=== PATIENT | female | born 1990 | race Caucasian/White ===

== ENCOUNTER 2016-09-26 15:45 | Inpatient (IN) | payer OTHER ==
[~2016-09-26] VITALS: Ht 170.2 cm; Wt 54.5 kg
--- NOTE | 2016-09-26 15:55 | NUR ---
26 Y/O FEMALE C/O SI. STATES SHE HAS BIPOLAR AND DEPRESSION AND FEELS THAT SHE HAS HAD "MORE UPS AND DOWNS" SINCE STARTING ABILIFY A FEW WEEKS AGO. FEELS SUICIDAL WITH PLAN (AND PREVIOUS ATTEMPTS) OF "CUTTING MYSELF OR DRIVING REALLY FAST IN THE SLEET". DENIES HI. CALM AND COOPERATIVE. FAMILY PRESENT. STATES SHE GOES TO IOP - WENT TODAY AND WAS ADVISED TO COME TO ED.
--- NOTE | 2016-09-26 15:55 | NUR ---
AMBULATORY TO STRETCHER IN POD 3 FROM TRIAGE WITH [facility].
--- NOTE | 2016-09-26 16:13 | ED PSYCHIATRIC COMPLAINT ---
History of Present Illness General Chief Complaint: Psychiatric Related Complaint Stated Complaint: PT IS THINKING ABOUT DOING HARM TO HER SELF Source: patient, family, old records Exam Limitations: no limitations Vital Signs & Intake/Output Vital Signs & Intake/Output Vital Signs Date Time Temp Pulse Resp B/P Pulse O2 O2 Flow FiO2 Ox Delivery Rate 10/01 0816 97.1 82 111/72 09/30 195 97.9 93 135/79 09/30 1613 91 127/80 09/30 1215 81 119/77 Triage Note: 26 Y/O FEMALE C/O SI. STATES SHE HAS BIPOLAR AND DEPRESSION AND FEELS THAT SHE HAS HAD "MORE UPS AND DOWNS" SINCE STARTING ABILIFY A FEW WEEKS AGO. FEELS SUICIDAL WITH PLAN (AND PREVIOUS ATTEMPTS) OF "CUTTING MYSELF OR DRIVING REALLY FAST IN THE SLEET". DENIES HI. CALM AND COOPERATIVE. FAMILY PRESENT. STATES SHE GOES TO IOP - WENT TODAY AND WAS ADVISED TO COME TO ED. Triage Nurses Notes Reviewed? yes Onset: Abrupt Duration: week(s):, constant, getting worse Timing: recent history Severity: moderate, severe Severity Numbers: 10 Associated Symptoms: insomnia, suicidal ideation LMP (ages 10-50): now : No Patient currently breastfeeds: No HPI: 26-year-old female with history of cold disorder presents to emergency room complaining of suicidal ideation for the past few days with the plan of driving fast and crashing her car. The patient reports to a labile mood over the past few months has been worse over the past few weeks difficulty sleeping poor appetite . She seen by psychiatrist in [place] and has been compliant with taking Abilify and viibrid since june after she believes that these medications are making it worse. Her symptoms began from the stress of a recent eX and custody hernández. She is currently living with her mother. She denies alcohol or drug use she was hospitalized 10 years ago for similar episodes and states she benefited well from inpatient setting and intensive group counseling. The patient gave permission for both her mother myrna aguayo [phone] and father nel reyna [phone] to be reached for collaboration of conner (JAG BRUNO,CELIA) Allergies Coded Allergies: Penicillins (Severe, HIVES 09/26/16) benzoyl peroxide (FACIAL SWELLING 09/26/16) Reconcile Medications Aripiprazole (Abilify) 2 MG TABLET 1 TAB PO QPM MENTAL HEALTH (Reported) Eletriptan HBr (Relpax) 40 MG TABLET 40 PO PRN MIGRANES (Reported) Ibuprofen 200 MG CAPSULE 3 CAP PO PRN HEADACHES (Reported) Vilazodone (Viibryd) 40 MG TABLET 1 TAB PO QPM MENTAL HEALTH (Reported) (GALO NORMAN,TOM) Past History Travel History Traveled to [place] past 21 day No Medical History Any Pertinent Medical History? see below for history Neurological: NONE EENT: NONE Cardiovascular: NONE Respiratory: NONE Gastrointestinal: NONE Hepatic: NONE Renal: NONE Musculoskeletal: NONE Psychiatric: bipolar disease, depression Endocrine: NONE Blood Disorders: NONE Cancer(s): NONE GATEKEEPER/Reproductive: NONE Surgical History Surgical History: none Psychosocial History What is your primary language Japanese Tobacco Use: Current Not Daily Daily Tobacco Use Amount/Type: =< 4 Cigarettes daily ETOH Use: denies use Family History Hx Contributory? No (CELIA RAYA) Review of Systems Review of Systems Constitutional: Reports: no symptoms, see HPI. Comments Review of systems: See HPI, All other systems negative. Constitutional, no chills no fever, no malaise HEENT: No visual changes no sore throat no congestion Cardiovascular: No chest pain , no palpitation Skin, no jaundice no rashes, no change in skin Respiratory: No dyspnea no cough no sputum GI: No nausea no vomiting, no diarrhea : No dysuria Muscle skeletal: No joint pain, no back pain, no neck pain, Neurologic: No numbness no headache Psych: see hpi Heme/endocrine: No bruising no bleeding Immunology: No lymphadenopathy (CELIA RAYA) Physical Exam Physical Exam General Appearance: well developed/nourished, no apparent distress, alert, awake Neurological/Psychiatric: no motor/sensory deficits, awake, normal mood/affect, calm Comments: Well-developed well-nourished person in no acute distress HEENT: Normal EENT exam; PERRL, EOMI. HEAD is atraumatic. moist mucous membranes. Neck: Supple, normal range of motion Back: Nontender, no CVA tenderness. Full range of motion Cardiovascular: Regular rate and rhythms no murmurs rubs Respiratory: . No respiratory distress. Patient speaking in full complete sentences. Breath sounds clear to auscultation bilaterally: NO W/R/R Abdomen: Soft, nontender nondistended, no appreciable organomegaly. Normal bowel sounds. No rebound/guarding, Extremity: No edema, full range of motion of extremities Neuro: Alert oriented x3, motor sensory normal. There were no obvious focal neurologic abnormalities. Skin: No appreciable rash on exposed skin, skin is warm and dry. Psych: Mood and affect is normal, memory and judgment is normal. SAD PERSONS SAD PERSONS Response Value Depression/Hopelessness? yes 2 Previous Attempts/Psych Care yes 1 Single//? yes 1 Organized/Serious Attempt yes 2 Social Support? has support 0 Stated Future Intent? yes 2 Total 8 SAD PERSONS Done? yes (CELIA RAYA) Progress Differential Diagnosis: depression bipolar Plan of Care: Orders Procedure Date/time Status LITHIUM 10/03 0600 Active INIT HSP (30 MIN) 09/27 UNK Complete Current Medications Sig/Harsh Start time Last Medication Dose Stop Time Status Admin Acetaminophen 1,000 MG Q8P PRN 09/30 1600 AC (Tylenol) Labs ordered old records reviewed crisis consulted. case d/w dr lockhart (CELIA RAYA) Departure Departure Condition: Stable Departure Forms: Customer Survey General Discharge Information (CELIA RAYA) Departure Time of Disposition: 1930 Disposition: STILL A PATIENT Clinical Impression Primary Impression: Suicidal ideation Psych Admission Note Psychiatric Admission: I have seen and evaluated YOAN REYNA. I have also reviewed all the pertinent lab results and diagnostic results. YOAN REYNA will be admitted to our inpatient Psychiatric unit for treatment and care. PA/CONTINUITY EDITOR Co-Sign Statement Statement: ED Attending supervision documentation- [X] I saw and evaluated the patient. I have also reviewed all the pertinent lab results and diagnostic results. I agree with the findings and the plan of care as documented in the PA's/CONTINUITY EDITOR's documentation. [X] I have reviewed the ED Record and agree with the PA's/CONTINUITY EDITOR's documentation. [] Additions or exceptions (if any) to the PAs/CONTINUITY EDITOR's note and plan are summarized below: [] (GALO NORMAN,TOM) PA/CONTINUITY EDITOR Co-Sign Statement Statement: ED Attending supervision documentation- [X] I saw and evaluated the patient. I have also reviewed all the pertinent lab results and diagnostic results. I agree with the findings and the plan of care as documented in the PA's/CONTINUITY EDITOR's documentation. [X] I have reviewed the ED Record and agree with the PA's/CONTINUITY EDITOR's documentation. [] Additions or exceptions (if any) to the PAs/CONTINUITY EDITOR's note and plan are summarized below: [] (GALO NORMAN,TOM)
--- NOTE | 2016-09-26 16:13 | NUR ---
SECURITY TO [place] FOR WANDING. PT CALM AND COOPERATIVE CHANGING INTO BLUE SCRUBS AT THIS TIME. PT PARENTS AT BEDSIDE FOR SUPPORT.
--- NOTE | 2016-09-26 16:45 | NUR ---
DAMION SCHWARTZ TO BEDSIDE FOR EVAL.
[2016-09-26] MEDS ORDERED: ABILIFY2 MG PO (16:54)
[2016-09-26] MEDS ORDERED: VIIBRYD40 M1 PO (16:54)
--- NOTE | 2016-09-26 16:54 | NUR ---
PT BLOOD OBTAINED (SST,LAV, URINE TRIO.) PT PROVIDED WITH DINNER TRAY. OFFERS NO COMPLAINTS AT THIS TIME.
[2016-09-26] MEDS ORDERED: IBUPROFEN200 M3 PO (16:55)
[2016-09-26 16:57] LABS: ABSOLUTE BASOPHIL COUNT 0.1 /CUMM (0.0-0.2); ABSOLUTE EOSINOPHIL COUNT 0.1 /CUMM (0.0-0.7); ABSOLUTE GRANULOCYTE CT 5.9 /CUMM (1.4-6.5); ABSOLUTE MONOCYTE COUNT 0.6 /CUMM (0.10-0.60); BASOPHIL % 0.7 % (0.0-2.0); GRANULOCYTE % 68.3 % (42.2-75.2); HEMATOCRIT 42.4 % (37-47); MEAN CORPUSCULAR HGB 30.9 PG (27.0-31.0); MEAN CORPUSCULAR HGB CONC 34.6 G/DL (33.0-37.0); MEAN CORPUSCULAR VOLUME 89.3 FL (81.0-99.0); MEAN PLATELET VOLUME 6.9 FL (7.4-10.4); PLATELET COUNT 270 /CUMM (130-400); RBC DISTRIBUTION WIDTH 12.8 % (11.5-14.5); RED BLOOD CELL CT 4.75 /CUMM (4.20-5.40); WHITE BLOOD CELL COUNT 8.6 /CUMM (4.8-10.8)
--- NOTE | 2016-09-26 17:55 | NUR ---
ASSUMED CARE AT THIS TIME, PT CALM AND COPERATIVE
--- NOTE | 2016-09-26 18:19 | NUR ---
PT SPEAKING WITH CRISIS.
--- NOTE | 2016-09-26 18:44 | NUR ---
PT SITTING UP IN RECLINER CHAIR READING A BOOK AT THIS TIME, OFFERS NO COMPLAINTS
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
--- NOTE | 2016-09-26 19:15 | NUR ---
ASSUMED CARE OF PATIENT. PT CALM AND COOPERATIVE. PT AWARE OF PLAN TO BE ADMITTED DOWNSTAIRS. SITTER AT DOOR FOR SAFETY
--- NOTE | 2016-09-26 20:10 | NUR ---
PT CALM AND COOPERATIVE IN ROOM 15, READING A BOOK. PT STATES SHE "FEELS SAFE HERE". PT AWAITING TRANSFER TO [facility].
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
--- NOTE | 2016-09-26 20:13 | NUR ---
PT INQUIRED IF SHE HAD A UTI, DUE TO DARK COLORED URINE WITH WHITE SPECKS IN IT. UA NOT COMPLETED IN ED. WILL ADVISE CPS.
--- NOTE | 2016-09-26 20:18 | NUR ---
PT REPORTED TO SW THAT SHE TAKES RELPAX FOR MIGRAINES. THIS MED WAS NOT LISTED ON HOME MED LIST.
--- NOTE | 2016-09-26 20:22 | NUR ---
Crisis consultation completed. Patient evaluation reviewed with on-call psychiatrist Dr. Quigley. Patient will be admitted to [facility].
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
[2016-09-26 21:38] VITALS: BP 114/70
--- NOTE | 2016-09-26 22:44 | History & Physical ---
General Information and HPI MD Statement: I have seen and personally examined YOAN REYNA and documented this H&P. The patient is a 26 year old F who presented with a patient stated chief complaint of [medical evaluation]. Source of Information: patient Exam Limitations: no limitations History of Present Illness: Patient admitted for suicidal ideation and depression. Patient complains of urinary symptoms with incomplete voiding, frequency. "I may have UTI". But denies any dysuria, burning, lower abdominal pain. Patient has vaginal itching, scant thick vaginal discharge. Patient started her menses today. Patient gets recurrent urinary infections, last being treated with antibiotics in June. She denies any fever, back pain, abdominal pain, nausea vomiting. But she endorses some chills and night sweats. Occasionally she gets headaches, and watery stools one per day when she is anxious and stressed. Otherwise complete 14 point ROS negative. Allergies/Medications Allergies: Coded Allergies: Penicillins (Severe, HIVES 09/26/16) benzoyl peroxide (FACIAL SWELLING 09/26/16) Home Med list Aripiprazole (Abilify) 2 MG TABLET 1 TAB PO QPM MENTAL HEALTH (Reported) Eletriptan HBr (Relpax) 40 MG TABLET 40 PO PRN MIGRANES (Reported) Ibuprofen 200 MG CAPSULE 3 CAP PO PRN HEADACHES (Reported) Vilazodone (Viibryd) 40 MG TABLET 1 TAB PO QPM MENTAL HEALTH (Reported) Compliance With Home Meds: FAIR Past History Travel History Traveled to [place] past 21 day No Medical History Any Pertinent Medical History? 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 Home Who Do You Live With? parent Services at Home: None Primary Language: Maldivian Smoking Status: Never Smoked ETOH Use: occasional use Illicit Drug Use: marijuana Living Will? unknown Power of Formstone Fitter/HCP? unknown Functional Ability ADLs Independent: dressing, eating, toileting, bathing. Ambulation: independent IADLs Independent: shopping, housework, finances, food prep, telephone, transportation , medication admin. 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 Review of Systems Review of Systems Constitutional: Reports: chills. Denies: see HPI, diaphoresis, fever, malaise, weakness. EENTM: Reports: no symptoms. Cardiovascular: Reports: no symptoms. Respiratory: Reports: no symptoms. GI: Reports: no symptoms. Genitourinary: Reports: frequency, hesitation, urgency. Musculoskeletal: Reports: no symptoms. Skin: Reports: no symptoms. Neurological/Psychological: Reports: anxiety, depressed. Hematologic/Endocrine: Reports: no symptoms. Immunologic/Allergic: Reports: no symptoms. All Other Systems: Reviewed and Negative Date of LMP: 09/26/16 Post Menopausal: No Exam & Diagnostic Data Last 24 Hrs of Vital Signs/I&O Vital Signs Date Time Temp Pulse Resp B/P Pulse O2 O2 Flow FiO2 Ox Delivery Rate 09/26 2137 97.9 83 114/70 09/26 2011 98.2 84 16 104/65 98 Room Air 09/26 1844 98.4 82 16 105/57 98 Room Air 09/26 1550 98.7 96 18 119/80 96 Room Air Intake & Output 09/26 0000 09/26 0800 09/26 1600 Intake Total Output Total Balance Patient 54.431 kg Weight Physical Exam General Appearance Alert, Oriented X3, Cooperative, No Acute Distress Skin No Rashes, No Breakdown, No Significant Lesion HEENT Atraumatic, PERRLA, EOMI, Mucous Membr. moist/pink Neck Supple, No JVD, No thryomegaly, +2 Carotid Pulse wo Bruit, No LAD Lymphatic Cervical nl Cardiovascular Regular Rate, Normal S1, Normal S2, No Murmurs Lungs Clear to Auscultation, Normal Air Movement Abdomen Normal Bowel Sounds, Soft, No Tenderness, No Hepatospenomegaly, No Masses Neurological Exam Findings: Normal Gait, Normal Speech, Strength at 5/5 X4 Ext, Normal Tone, Sensation Intact, Cranial Nerves 3-12 NL, Reflexes 2+ Cranial Nerves II through XII: intact, no deficit Extremities No Clubbing, No Cyanosis, No Edema, Normal Pulses, No Tenderness/ Swelling Vascular Normal Pulses, Pulses Symmetrical Last 24 Hrs of Labs/Antonio: Laboratory Tests 09/26/16 1651: Anion Gap 10, Estimated GFR 60, BUN/Creatinine Ratio 17.3, Glucose 82, Calcium 9.8, Total Bilirubin 1.0, AST 17, ALT 25, Alkaline Phosphatase 45, Total Protein 6.8, Albumin 4.2, Globulin 2.6, Albumin/Globulin Ratio 1.6, TSH 0.548, CBC w Diff NO MAN DIFF REQ, RBC 4.75, MCV 89.3, MCH 30.9, RDW 12.8, MPV 6.9 L, Gran % 68.3, Lymphocytes % 23.1, Monocytes % 6.9, Eosinophils % 1.0, Basophils % 0.7, Absolute Granulocytes 5.9, Absolute Lymphocytes 2.0, Absolute Monocytes 0.6, Absolute Eosinophils 0.1, Absolute Basophils 0.1, PUBS MCHC 34.6, Serum Alcohol < 10.0 09/26/16 1642: Urine Opiates Screen < 100.00, Methadone Screen < 40, Barbiturate Screen < 60, Ur Phencyclidine Scrn < 6.00, Amphetamines Screen < 100, U Benzodiazepines Scrn < 85, Urine Cocaine Screen < 50, Urine Cannabis Screen > 80.00 H, Urine Test NEGATIVE Microbiology 09/26 2229 URINE ROUT: Urine Culture - ORD Diagnostic Data EKG Results just ordered CXR Results no done in ER, no complains Assessment/Plan Assessment: #1 depression and suicidal ideation: Agree with psychiatrist #2 UTI symptoms: Check UA and urine culture. UA : Positive for leucocyte estrace: started in Bactrim DS for 3 days. #3 suspected vaginal candidiasis: One dose of by mouth fluconazole, after obtaining EKG for QTc (checked 402) interval. Patient was on hydroxyzine, which I discontinued temporarily. #4 I suggested her to follow up outpatient for Pap smear. As Ranked By This Provider Problem List: 1. Suicidal ideation 2. UTI (urinary tract infection) 3. Vaginal candidiasis Miscellaneous Miscellaneous Documentation Attending Case Discussed With: ALEXANDRU NORMAN,ZACHERY Primary Care Physician: PATIENT HAS NO PRIMARY CARE DR Patient sees these Specialists N/A Level of Patient Care: [facility]
[2016-09-26] MEDS ORDERED: RELPAX40 M1 PO (22:51)
--- NOTE | 2016-09-26 23:04 | NUR ---
PT. ADMITTED TO SOUTH ALERT ORIENTED VSS PT. 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 UA UC ORDERED C/O OF URINARY SYMPTOMS AND OBTAINED. HX. MIGRANES BUT NONE AT THIS TIME. PT. ORIENTED TO SURROUNDINGS INTERIEW OBTAINED.
--- NOTE | 2016-09-27 05:05 | Admission Certification ---
Admission Certification Certification Statement - As attending physician, I certify that at the time of - admission, based on clinical presentation, severity of - symptoms, need for further diagnostic testing and - therapeutic interventions, and risk of adverse outcomes - without in-hospital treatment, in my clinical assessment, - this patient requires an acute hospital stay for a minimum - of two nights or longer. I have also considered psychsocial - factors such as support system, advanced age, financial - issues, cognitive issues, and failed out-patient treatments, - past re-admission history, safety of patient, and lack of - compliance as applicable. Specific rationale supporting this admission is: suicidal ideation
[2016-09-27 08:52] VITALS: BP 127/67
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
[2016-09-27 13:13] VITALS: BP 137/79
--- NOTE | 2016-09-27 14:19 | NUR ---
PT IS COMPLIANT AND COOPERATIVE. MOOD IS STABLE WITH A FLAT AFFECT. PT HAS AN IRRITABLE EDGE AND REPORTS BEING "ANGRY" D/T BEING IN THE HOSPITAL. PT DENIES SI AT THIS TIME, NO COMPLAINTS OFFERED. NO S/S OF DETOX NOTED OR REPORTED, NO SCORING ON CIWA. PT TENDS TO BE WITHDRAWN FROM OTHERS IN THE COMMUNITY, CAN BE ISOLATIVE IN ROOM. PT IS ATTENDING SOME GROUPS. VITALS ARE STABLE, APPETITE IS GOOD.
[2016-09-27 16:25] VITALS: BP 133/73
[2016-09-27 19:38] VITALS: BP 136/85
--- NOTE | 2016-09-27 22:22 | NUR ---
Pt is out in the community mood is stable affect is in full range, pt interacts with her peers appropriately, pt is compliant and cooperative with the staff, Vital signs are stable c/o no pain appetite is good. Will continue to monitor the pt overnight.
[2016-09-28 07:59] VITALS: BP 140/78
[2016-09-28 12:02] VITALS: BP 123/77
--- NOTE | 2016-09-28 14:00 | NUR ---
PT MOOD IS STABLE WITH A FULL RANGE AFFECT. PT IS OUT IN COMMUNITY INTERACTING WITH STAFF AND PEERS. PT IS SOICAL WITH PEERS AND ENGAGES IN GAMES WITH PEERS. PT IS ACTIVE IN GROUPS. PT IS COMPLIANT AND COOPERATIVE. PT REPORTS SOME ANXIETY BUT IT GOT LESS THROUGH THE DAY. PT DENIES SI THOUGHTS
--- NOTE | 2016-09-28 14:04 | CP SOUTH PROGRESS NOTE PSYCH ---
Psych (Inpt) Progress Note Progress Note Include the following elements, when applicable: Involvement in the active treatment of the patient with behavioral observations of the patient and the patient's response to the treatment. Review of the ongoing treatment process in the context of the treatment plan. Indication of how multi-disciplinary staff members are carrying out the treatment plan. Plans for future interventions and recommendations for revision of the treatment plan. Liaison with other physicians/providers. Progress Note: Notes reviewed, progress discussed with nursing staff. Interviewed patient this morning. Says she reports feeling well, appropriately discussed her concerns regarding disturbance on the unit from another patient last evening. She says that she is concerned about potential withdrawal symptoms from viibryd because she has had withdrawal symptoms from other antidepressants in the past, though says that she is surprised that she is not experiencing any current withdrawal symptoms. Reports continued depressed mood, though denies SI or HI. + Moderate but tolerable anxiety. MSE: Mildly anxious but otherwise well appearing thin female, well- groomed, dressed appropriately. Cooperative with interview. Good eye contact. No psychomotor agitation or retardation. Speech was within normal limits. Mood was "a little down but getting better" affect was constricted, non-labile, full range. Thought process was logical and linear. Thought content was without suicidal or homicidal ideation. She denies perceptual disturbance. Cognition was grossly intact. Insight and judgment were fair. Vitals reviewed and without abnormality. No new laboratory results today. A/P: Improving mood and anxiety symptoms, no noted side effects from medication changes. Continue present management as per primary team.
--- NOTE | 2016-09-28 14:20 | NUR ---
Pt was visible in the milieu today. Her goal was "to talk with the log cut off sawyer". She attended both planning meeting, and focus group with positive participation in both groups. In the milieu she has been interacting with her peers, and cooperative with staff. This afternoon pt had a visit with her mother which appears to be going okay. Pt denies when asked if she has suicidal thoughts, and thoughts to self harm.
[2016-09-28 15:48] VITALS: BP 125/89
[2016-09-28 20:01] VITALS: BP 130/77
--- NOTE | 2016-09-28 23:32 | NUR ---
PATIENT ALERT AND ORIENTED X3, POSITIVE MOOD, PLAYED GAMES WITH PEERS; VISITED WITH FRIENDS AND FAMILY; SOMEWHAT ABRUPT WITH STAFF AT TIMES, BUT OVERALL BETER; SHE DENIES S/I AT THIS TIME; SHE ATTENDED WRAP UP WITH GOOD PARTICIPATION.
--- NOTE | 2016-09-29 05:52 | NUR ---
PATIENT SLEPT ALL NIGHT, UP TO BATHROOM AT 0500.
[2016-09-29 07:42] VITALS: BP 112/69
--- NOTE | 2016-09-29 11:29 | CP SOUTH PROGRESS NOTE PSYCH ---
Psych (Inpt) Progress Note Progress Note Include the following elements, when applicable: Involvement in the active treatment of the patient with behavioral observations of the patient and the patient's response to the treatment. Review of the ongoing treatment process in the context of the treatment plan. Indication of how multi-disciplinary staff members are carrying out the treatment plan. Plans for future interventions and recommendations for revision of the treatment plan. Liaison with other physicians/providers. Progress Note: Notes reviewed, progress discussed with nursing staff. Interviewed patient this morning. Britney notes an increase in her anxiety symptoms after speaking with her children's father. She is now unsure as to when she will next be able to see her children. She further articulated that she is having difficulties with where she will live after she is discharged. Feels overwhelmed. That being said she was able to thoughtfully discuss these issues can of frame them in a larger context, and demonstrate insight into the nature of anxiety, and the long -term nature of many of these problems. She denies medication side effects, denies SI or HI. MSE: Mildly anxious but otherwise well appearing thin female, well- groomed, dressed appropriately. Cooperative with interview. Good eye contact. No psychomotor agitation or retardation. Speech was within normal limits. Mood was "anxious" affect was constricted, anxious non-labile, full range. Thought process was logical and linear. Thought content was without suicidal or homicidal ideation. She denies perceptual disturbance. Cognition was grossly intact. Insight and judgment were fair. Vitals reviewed and without abnormality. No new laboratory results today. A/P: Prominent anxiety symptoms that the patient demonstrates an interest in improving through both psychotherapy and psychopharmacology. She denies any current medication side effects. Continue present management as per primary team.
[2016-09-29 12:11] VITALS: BP 112/68
--- NOTE | 2016-09-29 14:31 | NUR ---
OUT IN COMMUNITY INTERACTS WELL WITH PEERS. REPORTS SOME ANXIETY, PRN GIVEN. MOOD IS STABLE, SUBDUED AFFECT. DENIES THOUGHTS OF SELF HARM WHEN ASKED.
[2016-09-29 15:50] VITALS: BP 116/68
--- NOTE | 2016-09-29 18:28 | NUR ---
NOTIFIED HOD OF EXPIRING BACTRIM. PATIENT NOT SYMPTOMATIC, CULTURE NEGATIVE
[2016-09-29 19:50] VITALS: BP 139/85
--- NOTE | 2016-09-29 19:59 | NUR ---
PT. IN [facility] [employer] VSS, OUT IN COMMUNITY TALKING TO OTHERS. C/O NECK PAIN MEDICATED WITH IBUPROFEN ORDERED WITH GOOD RELIEF.
[2016-09-30 07:58] VITALS: BP 119/70
[2016-09-30 12:15] VITALS: BP 119/77
--- NOTE | 2016-09-30 13:49 | NUR ---
PT IS COMPLIANT AND COOPERATIVE. MOOD IS STABLE WITH A CONSTRICTED AFFECT. PT DENIES SI AT THIS TIME, NO COMPLAINTS OFFERED. PT IS PRESENT IN THE COMMUNITY AND INTERACTING WELL WITH PEERS AND STAFF. PT REPORTED FEELING HIGH ANXIETY TODAY- NOTED TO BE BOUNCING LEG UP AND DOWN FREQUENTLY. PT IS ATTENDING GROUPS. VITALS ARE STABLE, APPETITE IS GOOD.
--- NOTE | 2016-09-30 14:18 | CP SOUTH PROGRESS NOTE PSYCH ---
Psych (Inpt) Progress Note Progress Note Progress Note: I discussed this patient's progress to date, current mental status, treatment process in the context of the treatment plan, and discharge planning with staff/ team in the daily morning inpatient team meeting. I also met with the patient myself in individual session. SUBJECTIVE: "I seem to have more stable moods. The Neurontin helps with the anxiety, but does not last long. My main problem is I just have a lot of anxiety." OBJECTIVE: Current Medications Sig/Harsh Start time Last Medication Dose Route Stop Time Status Admin Acetaminophen 1,000 MG Q8P PRN 09/30 1600 UNVr PO Bupropion HCl 150 MG 0800 09/28 0800 AC 09/30 PO 0857 Gabapentin 400 MG 0800,1200,1600,09/30 1200 DC PO Gabapentin 400 MG 0800,1200,1600,09/30 0915 AC 09/30 PO 1312 Gabapentin 400 MG Q6-PRN PRN 09/27 2100 DC 09/29 PO 1706 Ibuprofen 400 MG Q6P PRN 09/26 2014 DC 09/29 PO 1852 [place] Carbonate 300 MG 0800,09/30 1600 UNVr PO Trazodone HCl 50 MG AT BEDTIME NEED.. 09/26 2130 AC 09/30 PO 0008 Trimethoprim/ 1 TAB BID 09/27 1000 DC 09/29 Sulfamethoxazole PO 09/29 2201 2210 Laboratory Tests 09/30 0600 Chemistry Sodium (137 - 145 mmol/L) 140 Potassium (3.5 - 5.1 mmol/L) 3.8 Chloride (98 - 107 mmol/L) 105 Carbon Dioxide (22 - 30 mmol/L) 25 Anion Gap (5 - 16) 11 BUN (7 - 17 mg/dL) 16 Creatinine (0.5 - 1.0 mg/dL) 0.9 Estimated GFR (>60 ml/min) > 60 BUN/Creatinine Ratio (7 - 25 %) 17.8 Glucose (65 - 99 mg/dL) 73 Calcium (8.4 - 10.2 mg/dL) 9.4 Phosphorus (2.5 - 4.5 mg/dL) 4.1 Albumin (3.5 - 5.0 g/dL) 3.8 Vital Signs Date Time Temp Pulse Resp B/P Pulse O2 O2 Flow FiO2 Ox Delivery Rate 09/30 1215 81 119/77 09/30 0758 96.7 77 119/70 09/29 1950 97.3 93 139/85 ASSESSMENT: Patient reports feeling better after a quiet weekend, however elevated anxiety continues. Tolerating medications well. Gabapentin is helpful for anxiety, however states that the positive effects of gabapentin did not last until the next dose. States that she slept well last night, without nightmares. Renal labs came back within normal limits this morning. I discussed renal findings with nephrology, who stated that the patient can start on lithium, however kidney functions should be followed. I discussed these findings with the patient, including the discussion of the risks, benefits and side effects of lithium therapy including possible kidney and thyroid problems, and lithium toxicity. Patient has agreed to try lithium at this time, stating "I guess I'm pretty impulsive." Depression:11/15; Anxiety:04/17 (with 10 the worst.) Denies suicidal ideation, homicidal ideation, auditory hallucinations, visual hallucinations, paranoid ideation. Patient states and also believes that she will not kill herself. She states that she is not suicidal "anymore." She reports that she is not feeling social anxiety/paranoia, stating "I feel comfortable here." Patient reports her appetite has improved since her arrival on the unit. Speech is well articulated, goal-directed, average in rate, volume and tone. Alert and oriented 3. Calm, cooperative and pleasant. Logical. The patient understands the risks/benefits/side effects of the medication and is agreeable to continue taking them. PLAN: Initiate lithium 300 mg twice daily for mood instability and suicidal ideation. Between level on morning. Continue with other current management as patient is improving. Continue to provide support and encouragement.
--- NOTE | 2016-09-30 15:32 | SOCIAL WORKER TX PLAN PSYCH ---
Treatment Plan - Please Document: - Evidence that there is ongoing collaboration between - the patient and the interdisciplinary team, - including the patient's active participation and - responsibility for engaging in the treatment regimen, - and that the treatment plan is individualized and - relevant to the patient's conditions. - Treatment plan should reflect documentation indicating - that all active therapeutic efforts are included. Strengths/Capabilities: Pt. is motivated to reduce substance use. 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 Pt. has family support. Pt. has fair insight. Physical Limitations (Interventions): None reported. 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 Modalities: Encourage groups, education on depression, provide CBT treatment, family meeting. 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
[2016-09-30 16:13] VITALS: BP 127/80
--- NOTE | 2016-09-30 16:43 | SOCIAL WORKER PROG NOTE PSYCH ---
Social Work Progress Note Progress Note Patient offerred minimal complaints today and reported having a good weekend. Mood was somewhat brighter then when we met on Friday. She denied any present SI but did report continued depression and anxiety. Patient has agreed to start [place] and is optomistic about it. Kamaljit has good support from her family and reports feeling appreciative of them. Patient to trial lithium while in the hospital with recommendation to follow through with IOP post discharge from the hospital. Patient did not express a desire to leave the hospital today and is open to remaining in the hospital for a short time to continue to see improvement in mood.
[2016-09-30 19:51] VITALS: BP 135/79
--- NOTE | 2016-09-30 22:28 | NUR ---
PT IS CALM, COOPERATIVE WITH STAFF AND PEERS, AND COMPLIANT WITH UNIT RULES. PT IS IN [place], AND INTERACTING WELL WITH STAFF/PEERS. PT MOOD IS STABLE, AFFECT IS EUTHYMIC TO FULL RANGE, COMMUNCATION IS NORMAL, AND APPETITE IS NORMAL. PT DENIES SI AT THIS TIME.
--- NOTE | 2016-10-01 06:10 | NUR ---
PATIENT SLEPT ALL NIGHT.
[2016-10-01 08:16] VITALS: BP 111/72
--- NOTE | 2016-10-01 11:37 | SOCIAL WORKER PROG NOTE PSYCH ---
Social Work Progress Note Progress Note Patient was confronted by nursing staff this AM due to staff noticing inappropriate behavior with another patient on the unit. I met with patient shortly after she was confronted about her behavior. Patient was tearful and upset stating that she feels disrespected and accused of behavior that was innocent. She complained of rules on the unit and feeling like she did not understand what was allowed vs not allowed. During her venting she reported that she wants to put in a 3 day paper due to this incident. I attempted to de- escalate patient and pointed out that she was acting impulsive and reactive as she has done in the past and that she chose to come here because she recognized she needed help. Patient agreed that she was acting reactive and was able to listen to my feedback on her behavior. She reported feeling concerned that she would not be able to talk to this one specific patient again due to feeling that he understood her situation better then others. I expressed the importance of sharing personal information with staff rather then other patients which patient understood and did not resist. Overall patient was open to my feedback and asked if she could call her sister who is a good support for her. Patient is unsure at this time if she going to put in a 3 day paper, but does appear to have somewhat better insight after our conversation into the importance of focusing on herself and getting better instead of giving up.
--- NOTE | 2016-10-01 12:46 | CP SOUTH PROGRESS NOTE PSYCH ---
Psych (Inpt) Progress Note Progress Note Progress Note: I discussed this patient's progress to date, current mental status, treatment process in the context of the treatment plan, and discharge planning with staff/ team in the daily morning inpatient team meeting. I also met with the patient myself in individual session. OBJECTIVE: Current Medications Sig/Harsh Start time Last Medication Dose Route Stop Time Status Admin Acetaminophen 1,000 MG Q8P PRN 09/30 1600 AC PO Bupropion HCl 150 MG 09/28 0800 AC 10/01 PO 0830 Gabapentin 400 MG 0800,1200,1600,09/30 0915 AC 10/01 PO 1217 Hydroxyzine HCl 25 MG Q6-PRN PRN 10/01 1230 AC 10/01 PO 1229 Ibuprofen 400 MG Q6P PRN 09/26 2014 DC 09/29 PO 1852 [place] Carbonate 300 MG 10/02 08 UNVr PO [place] Carbonate 600 MG 10/01 UNVr PO [place] Carbonate 300 MG 08,09/30 1600 DC 10/01 PO 0831 Trazodone HCl 50 MG AT BEDTIME NEED.. 09/26 2130 AC 09/30 PO 0008 Vital Signs Date Time Temp Pulse Resp B/P Pulse O2 O2 Flow FiO2 Ox Delivery Rate 10/01 0816 97.1 82 111/72 09/30 1951 97.9 93 135/79 09/30 1613 91 127/80 ASSESSMENT: Patient reports that she tolerated lithium yesterday well, without complaints. States that all flow gabapentin offers some anxiety relief, anxiety still continues. Patient noted to be shaking her right leg while seated. She reports continuing depression and anxiety, however improved since yesterday. She reports being somewhat aggravated , after nursing staff spoke to her about inappropriate behaviors on the unit today. Depression:6/10; Anxiety:7/10 (with 10 the worst.) Denies suicidal ideation, homicidal ideation, auditory hallucinations, visual hallucinations, paranoid ideation. Patient states and also believes that she will not kill herself, is not having suicidal ideation today. States that she slept well last night, after taking trazodone at midnight. States that her appetite is good. Speech is well articulated, goal-directed, average in rate, volume and tone. Alert and oriented 3. Cooperative, logical. The patient understands the risks/benefits/side effects of the medication and is agreeable to continue taking them. PLAN: Increase lithium dose, 300 mg in the morning and 600 mg at night. [place] level on Friday morning. Add hydroxyzine as needed for anxiety. Continue with current management as patient is improving. Continue to provide support and encouragement. Continue to provide support and encouragement.
[2016-10-01 13:32] VITALS: BP 131/80
--- NOTE | 2016-10-01 14:27 | NUR ---
PATIENT IRRITABLE TODAY. PATIENT HYPERSEXUAL WITH MALE PATIENTS, LIMITS SET ON HER BEHAVIOR. PATIENT VERY ANGRY, STATED THAT SHE WANTED TO LEAVE. 3DAY PAPER EXPLAINED TO PATIENT - SHE DID NOT SIGN AT PRESENT. PATIENT FOCUSED ON PERCEIVED SLIGHTS BY STAFF WHEN SETTING LIMITS WITH OTHER PATIENTS. THE PATIENT WAS ENCOURAGED TO FOCUS ON HER OWN ISSUES.
[2016-10-01 16:16] VITALS: BP 132/76
[2016-10-01 20:10] VITALS: BP 148/89
--- NOTE | 2016-10-01 21:37 | NUR ---
PT IS VERY UPSET WITH STAFF LIMIT SETTING OVER EARLIER INCIDENT. PT APPEARS DEPRESSED, HAS BEEN LABILE, CRYING ON UNIT/CROUCHED ON THE FLOOR IN HALLWAY. PT MOOD IS STABLE, AFFECT IS EUTHYMIC TO FULL RANGE, COMMUNICATION IS NORMAL, AND APPETITIE IS NORMAL. PT DENIES SI AT THIS TIME.
[2016-10-02 08:08] VITALS: BP 119/63
--- NOTE | 2016-10-02 12:04 | NUR ---
Pt has an irritable/labile edge thus far today yet does remain in control of self and behavior, attended groups today however did not participate with much substance. Vital signs are stable, and no issues reported or observed, med complaint.
[2016-10-02 12:21] VITALS: BP 122/75
--- NOTE | 2016-10-02 12:58 | SOCIAL WORKER PROG NOTE PSYCH ---
Social Work Progress Note Progress Note Patient continued to present as tearful and upset today. Patient reported that she had a difficult night and did not sleep well due to feeling anxious and upset. Patient is having a difficult time responding appropriately to the rules that were placed yesterday regarding her behavior with a male peer on the unit. Patient did acknowledge that this a problem she deals with frequently and she is aware that she needs to work on it. Patient reported that she talked to her children last night on the phone and had a good conversation with them. Patient continues to report depression and anxiety with passive suicidal thoughts, stating that she wishes she could but has no plan or intent to hurt herself.
--- NOTE | 2016-10-02 14:20 | CP SOUTH PROGRESS NOTE PSYCH ---
Psych (Inpt) Progress Note Progress Note Progress Note: I discussed this patient's progress to date, current mental status, treatment process in the context of the treatment plan, and discharge planning with staff/ team in the daily morning inpatient team meeting. I also met with the patient myself in individual session. SUBJECTIVE: "I'm sick of being sad." OBJECTIVE: Current Medications Sig/Harsh Start time Last Medication Dose Route Stop Time Status Admin Acetaminophen 1,000 MG Q8P PRN 09/30 1600 AC PO Bupropion HCl 150 MG 09/28 08 AC 10/02 PO 08 Gabapentin 400 MG 0800,1200,1600,09/30 0915 10/02 PO 1214 Hydroxyzine HCl 25 MG Q6-PRN PRN 10/01 1230 10/01 PO 1229 [place] Carbonate 300 MG 10/02 0810/02 PO 08 [place] Carbonate 600 MG 10/01 PO 2002 Trazodone HCl 50 MG AT BEDTIME NEED.. 09/26 2130 10/01 PO 2148 Vital Signs Date Time Temp Pulse Resp B/P Pulse O2 O2 Flow FiO2 Ox Delivery Rate 10/02 1221 72 122/75 10/02 0808 97.5 96 119/63 10/01 2009 98.8 93 148/89 10/01 1616 88 132/76 10/01 1332 92 131/80 ASSESSMENT: Patient reports tolerating medications including lithium well. I met the patient today along with social insurance administrator Kim. Patient presented crying and tearful. Stating that she was very depressed. States that she is "very depressed today." She reports that her anxiety has decreased since starting Atarax as needed for anxiety yesterday afternoon. States that the Atarax does not seem to be overly sedating. She did however take it at bedtime which helped her fall asleep. Denies homicidal ideation, auditory hallucinations, visual hallucinations, paranoid ideation. She states that she has thoughts of wishing that she were , however has no plan or intent to harm or kill herself. She says that her protective factors are her children. Speech is well articulated, goal-directed, average in rate, volume and tone. Alert and oriented 3. Logical. States she had a good night sleep last night, after taking Atarax and trazodone. The patient understands the risks/benefits/side effects of the medication and is agreeable to continue taking them. PLAN: [place] level on Friday morning. Continue with current management as patient is improving. Continue to provide support and encouragement.
[2016-10-02 15:52] VITALS: BP 125/73
[2016-10-02 20:24] VITALS: BP 138/84
--- NOTE | 2016-10-02 21:51 | NUR ---
PT IS CALM, COOPERATIVE WITH STAFF AND PEERS, AND COMPLIANT WITH UNIT RULES. PT IS RELATIVELY SOLEMN, SEEMINGLY UPSET, THOUGH CONTINUES TO STAY IN [place] AND IS UNTERACTING WELL WITH PEERS. PT MOOD IS STABLE, AFFECT IS EUTHYMIC TO FULL RNAGE, COMMUNICATION IS NORMAL, AND APPETITE IS NORMAL. PT DENIES SI AT THIS TIME.
[2016-10-03 07:54] VITALS: BP 120/73
--- NOTE | 2016-10-03 12:08 | SOCIAL WORKER PROG NOTE PSYCH ---
Social Work Progress Note Progress Note Patient continues to endorse +SI today stating "I wish I could just ." Patient shared that she superficially scratched the insight of her wrists with her finger nails yesterday when she was upset. She stated that this was the alternative to punching something or someone. She reports feeling very overwhelmed today by sadness and feels like an awful mother. Patient talked for a great deal about the recent stressors in her life that led to this hospitalization. Patient identifies extreme guilt over not being with her children right now and her sons 7th birthday is this upcoming weekend. Patient reports feeling like she has no way to control what is going on with her children outside the hospital and feels useless. Patient reports feeling like giving up because she feels there is no hope. Patient is having a difficult time handling dealing with her feelings because she is use to numbing her feelings with drugs or alcohol. Patient reports feeling scared of the idea of being alone and recognizes her need to be in a relationship. She was able to acknowledge that it is easier for her to focus on someone else rather then herself. She has agreed to try to work on this while in the hospital and work on accepting and recognizing her feelings instead of running away from them.
[2016-10-03 13:17] VITALS: BP 121/76
--- NOTE | 2016-10-03 14:14 | NUR ---
PT PRESENTS WITH IRRITABLE AND ANXIOUS MOOD. SHE REPORTS THAT NOT MUCH IS HELPING HER. SHE IS ATTENDING GROUPS AND TAKING HER MEDS AND AGREES TO TAKE ONE DAY AT A TIME. SHE DENIED ANY THOUGHTS OF SUICIDE OR SELF HARM AT [facility] TIME
[2016-10-03 16:07] VITALS: BP 123/74
--- NOTE | 2016-10-03 16:17 | CP SOUTH PROGRESS NOTE PSYCH ---
Psych (Inpt) Progress Note Progress Note Progress Note: I discussed this patient's progress to date, current mental status, treatment process in the context of the treatment plan, and discharge planning with staff/ team in the daily morning inpatient team meeting. I also met with the patient myself in individual session. SUBJECTIVE: "I'm very impulsive. I just want to punch things. The feeling comes and goes." OBJECTIVE: Current Medications Sig/Harsh Start time Last Medication Dose Route Stop Time Status Admin Acetaminophen 1,000 MG Q8P PRN 09/30 1600 AC PO Bupropion HCl 150 MG 09/28 08 AC 10/03 PO 0844 Gabapentin 400 MG 0800,1200,1600,09/30 0915 10/03 PO 1346 Hydroxyzine HCl 25 MG Q6-PRN PRN 10/01 1230 10/03 PO 0038 [place] Carbonate 300 MG 10/02 0810/03 PO 0844 [place] Carbonate 600 MG 10/01 PO 2024 Trazodone HCl 50 MG AT BEDTIME NEED.. 09/26 213 AC 10/01 PO 2148 Vital Signs Date Time Temp Pulse Resp B/P Pulse O2 O2 Flow FiO2 Ox Delivery Rate 10/03 1607 88 123/74 10/03 1317 91 121/76 10/03 0754 97.6 72 120/73 10/02 2023 98.3 64 138/84 ASSESSMENT: This morning I met with the patient, along with manager social [place]. The patient was calm and cooperative, however sad and depressed. Stated that her anxiety is under control since starting Atarax. Her moods continued to go "up and down." She reports tolerating her medications including lithium well. She reports continuing depression, her anxiety is better. Denies homicidal ideation, auditory hallucinations, visual hallucinations, paranoid ideation. Patient reports continuing suicidal ideation, stating that she wishes that she were no longer alive. Although she has no specific plan or intent to kill herself, states that she does "impulsive things." States that she feels "helpless and hopeless." She reports sleeping well at night. Her appetite is okay Speech is well articulated, goal-directed, average in rate, volume and tone. The patient understands the risks/benefits/side effects of the medication and is agreeable to continue taking them. PLAN: [place] level tomorrow morning. Continue with current management as patient is improving. Continue to provide support and encouragement.
[2016-10-03 19:50] VITALS: BP 131/80
--- NOTE | 2016-10-03 21:04 | NUR ---
Patient accidentally punctured left hand with pen attempting to stand up. PAtient bled, puncture wound cleaned and assessed. Bacitracin and bandaid applied. HOD notified of incident and agreed upon intervention.
--- NOTE | 2016-10-03 23:22 | NUR ---
EVENING NOTE-PT IS PRESENT IN THE COMMUNITY, INTERACTING APPROPRIATELY WITH PEERS AND STAFF, NO ISSUES OR COMPLAINTS REPORTED OR OBSERVED, IN WRAP UP MEETING SHARED THAT SHE IS CONTINUING TO WORK ON A GOAL WHICH IS MANAGING WAYS TO COPE WITH NEGATIVE THOUGHTS, MED COMPLIANT AND OVERALL MOOD IS STABLE WITH FULL RANGE AFFECT, ABLE TO MAKE NEEDS KNOWN TO STAFF.
--- NOTE | 2016-10-04 04:28 | NUR ---
PT PRESENTING LABILE AND TEARFUL/CRYING TOWARDS END OF EVENING SHIFT AND AROUND 0000, GIVEN PRNS AND COMFORT & REASSURANCE PROVIDED, SAT IN THE LOUNGE AND RETURNED TO BED SHORTLY AFTER AND SLEPT WELL.
[2016-10-04 08:00] VITALS: BP 151/98
--- NOTE | 2016-10-04 09:55 | SOCIAL WORKER PROG NOTE PSYCH ---
Social Work Progress Note Progress Note Met with Britney she was in group this morning. Earlier this morning she was on the phone sobbing. I asked who she was speaking with, and she stated her Mother and her ex-boyfriend. She stated she would never cry with her ex, that she feels he would take advantage of her vulnerability. She is distraught about legal (custody issues), and is thinking of having her children on weekends. She stated at times she feels overhwelmed with the legal issues. She reported Depression 0/10:8 and anxiety 0/10:7. She stated she is feeling suicidal, had difficult sleep last night - bad dreams. SHe is feeling better now that she is abstinent off Cannabis, and plans to remain off drugs. She stated she is going to put a long sleeve shirt on, because everyone is asking about her scratches on her arm. Scratched her arm with her finger nails yesterday. She stated, "I was feeling good, yesterday...I was laughing with everyone, then I went into my room and began thinking of the custody issues, then scratched my arm." Reiterated how she needs to talk to staff if feels impusive or wants to harm herself. She stated she knows she cannot be alone, and is worried about being alone next week (when expected discharge). Her Mother is going to [place], and she is trying to figure out who she can be with. Her grandmother lives in an Assisted Living and she may be able to stay on the recliner. Not certain she can stay there. Faxed Transfer to [facility]. Intake scheduled for 10/07/16 at 9:30am.
--- NOTE | 2016-10-04 10:47 | CP SOUTH PROGRESS NOTE PSYCH ---
Psych (Inpt) Progress Note Progress Note This note opened in error. plan. Liaison with other physicians/providers. Progress Note: I discussed this patient's progress to date, current mental status, treatment process in the context of the treatment plan, and discharge planning with staff/ team in the daily morning inpatient team meeting. I also met with the patient myself in individual session. SUBJECTIVE: OBJECTIVE: Current Medications Sig/Harsh Start time Last Medication Dose Route Stop Time Status Admin Acetaminophen 1,000 MG Q8P PRN 09/30 1600 AC PO Bupropion HCl 150 MG 09/28 0800 DC 10/04 PO 0820 Gabapentin 400 MG 0800,1200,1600,09/30 0915 AC 10/04 PO 0820 Hydroxyzine HCl 25 MG Q6-PRN PRN 10/01 1230 AC 10/03 PO 2336 [place] Carbonate 600 MG 10/05 0800 UNVr PO [place] Carbonate 300 MG ONCE ONE 10/04 1130 UNVr PO 10/04 1131 [place] Carbonate 300 MG 10/02 08 DC 10/04 PO 0820 [place] Carbonate 600 MG 10/01 AC 10/03 PO 1951 Olanzapine 5 MG AT BEDTIME 10/04 2200 UNVr PO Olanzapine 2.5 MG ONCE ONE 10/04 1130 UNVr PO 10/04 1131 Trazodone HCl 50 MG .STK-MED ONE 10/04 0020 DC PO 10/04 0021 Trazodone HCl 50 MG AT BEDTIME NEED.. 09/26 2130 AC 10/04 PO 0025 Laboratory Tests 10/04 0613 Toxicology [place] (0.6 - 1.2 mmol/L) 0.6 Vital Signs Date Time Temp Pulse Resp B/P Pulse O2 O2 Flow FiO2 Ox Delivery Rate 10/04 0800 97.0 104 151/98 10/03 1950 98.3 102 131/80 10/03 1607 88 123/74 10/03 1317 91 121/76 ASSESSMENT: Depression:[default value]/10; Anxiety:[default value]/10 (with 10 the worst.) [default value] suicidal ideation, homicidal ideation, auditory hallucinations, visual hallucinations, paranoid ideation. Speech is well articulated, goal-directed, average in rate, volume and tone. The patient understands the risks/benefits/side effects of the medication and is agreeable to continue taking them. PLAN: Continue with current management as patient is improving. Continue to provide support and encouragement.
--- NOTE | 2016-10-04 10:56 | NUR ---
RECEIVED REPORT THAT PATIENT HAS BEEN SCRATCHING WRISTS WITH FINGER NAILS. Patient has a couple superficial scratches to anterior left forearm and a couple scabbed superficial scratches to posterior right forearm. states she scratched herself rather than screaming due to frustrations with current family and inpatient situation. Asked her to come to staff for theraputic conversation and or medications rather than scratching herself. Agreed to do so. Psychiatrist aware.
[2016-10-04 12:36] VITALS: BP 106/69
--- NOTE | 2016-10-04 13:52 | NUR ---
No further scratching to wrists. Patient reports suicidal thoughts with no plan to act on them. Patient states she will notify staff if thought to self harm or suicidal thoughts become overwhelming.
[2016-10-04 15:41] VITALS: BP 124/77
--- NOTE | 2016-10-04 16:38 | CP SOUTH PROGRESS NOTE PSYCH ---
Psych (Inpt) Progress Note Progress Note Progress Note: I discussed this patient's progress to date, current mental status, treatment process in the context of the treatment plan, and discharge planning with staff/ team in the daily morning inpatient team meeting. I also met with the patient myself in individual session. OBJECTIVE: Current Medications Sig/Harsh Start time Last Medication Dose Route Stop Time Status Admin Acetaminophen 1,000 MG Q8P PRN 09/30 1600 AC PO Bupropion HCl 150 MG 09/28 08 DC 10/04 PO 0820 Gabapentin 400 MG 0800,1200,1600,09/30 0915 AC 10/04 PO 1615 Hydroxyzine HCl 25 MG Q6-PRN PRN 10/01 1230 AC 10/03 PO 2336 [place] Carbonate 600 MG 10/05 0800 AC PO [place] Carbonate 300 MG ONCE ONE 10/04 1130 DC 10/04 PO 10/04 1131 1149 [place] Carbonate 300 MG 10/02 0800 DC 10/04 PO 0820 [place] Carbonate 600 MG 10/01 AC 10/03 PO 1951 Olanzapine 2.5 MG AT BEDTIME 10/05 2200 AC PO Olanzapine 5 MG AT BEDTIME 10/04 2200 CAN PO Olanzapine 2.5 MG ONCE ONE 10/04 1130 DC PO 10/04 1131 Trazodone HCl 50 MG .STK-MED ONE 10/04 0020 DC PO 10/04 0021 Trazodone HCl 50 MG AT BEDTIME NEED.. 09/26 2130 AC 10/04 PO 0025 Laboratory Tests 10/04 0613 Toxicology [place] (0.6 - 1.2 mmol/L) 0.6 Vital Signs Date Time Temp Pulse Resp B/P Pulse O2 O2 Flow FiO2 Ox Delivery Rate 10/04 1541 76 124/77 10/04 1236 91 106/69 10/04 0800 97.0 104 151/98 10/03 1950 98.3 102 131/80 ASSESSMENT: This morning the patient presents as crying, tearful. She had a distressing phone call with the father of her children, who will not bring the children in from [place] to visit with her. Patient has been scratching her arms, she says to get out her anger. Superficial scratches noted on arms bilaterally. She continues to report elevated depression and anxiety. Tolerating lithium and Wellbutrin medications well, however without obvious benefit. States the Atarax is beneficial for anxiety. Today we discussed the risks, benefits, and side effects of olanzapine including the possibility of weight gain, a dystonic reaction, irreversible extrapyramidal symptoms and tardive dyskinesia. Patient verbalized understanding, and agrees to start a low dose of olanzapine for continuing disorganized and unstable thoughts, and discontinue Wellbutrin. Denies homicidal ideation, auditory hallucinations, visual hallucinations, paranoid ideation. She continues to say that she wishes that she were , however has no plan or intent to harm herself. She has however, at times, been very impulsive. States she feels safe here, but is unsure of her safety when she leaves the hospital. Speech is well articulated, goal-directed, average in rate, volume and tone. Alert and oriented 3. Cooperative and logical. The patient understands the risks/benefits/side effects of the medication and is agreeable to continue taking them. PLAN: Increase lithium, repeat lithium level on Friday morning. Discontinue Wellbutrin. Initiate Zyprexa 2.5 mg at bedtime for disorganized and impulsive thoughts, high levels of irritability and anxiety. Consider increasing Zyprexa as clinically indicated. Continue with other current management as patient is improving. Continue to provide support and encouragement.
[2016-10-04 19:46] VITALS: BP 120/73
--- NOTE | 2016-10-04 21:44 | NUR ---
Pt is out in the community mood is stable, interacts appropraitely with her peers. Pt vital signs are stable c/o no pain. Will continue to monitor the pt overnight.
[2016-10-05 08:56] VITALS: BP 108/73
--- NOTE | 2016-10-05 11:37 | NUR ---
PT IS IRRITABLE AND USING FOUL LANGUAGE.PT WAS ADVISED TO SPEAK IF HER CHILDREN WERE IN THE ROOM AND SHE STATED THAT SHE SWEARS IN FRONT OF HER CHILDREN ALL THE TIME AND SHE DOESN'T SEE A PROBLEM WITH THAT. PT EASILY IRRITATED WHEN STAFF DOES NOT IMMEDIATELY MEET HER NEEDS.SHE DENIED SUICIDAL THOUGHTS AT THIS TIME
[2016-10-05 16:12] VITALS: BP 134/87
--- NOTE | 2016-10-05 16:27 | CP SOUTH PROGRESS NOTE PSYCH ---
Psych (Inpt) Progress Note Progress Note Include the following elements, when applicable: Involvement in the active treatment of the patient with behavioral observations of the patient and the patient's response to the treatment. Review of the ongoing treatment process in the context of the treatment plan. Indication of how multi-disciplinary staff members are carrying out the treatment plan. Plans for future interventions and recommendations for revision of the treatment plan. Liaison with other physicians/providers. Progress Note: Depressed, tearful at times, stating that she almost doesnt want to see her children b/c she doesnt want to deal w/ the father. She stated that if discharged she would try to kill self. Anhedonia, few things to look forward to. Feels more down and slowed, may be due to lithium. Discussed monitoring her lithium level, considering changing to loading more at night time if she feels sedated. Discussed outpatient programs, future oriented plans w/ her; she was more amenable later in the evaluation. Spoke about exercise, breathing to manage her anxiety rather than scratching. Does not want to take zyprexa b/c concern of AE and doesnt want to be on an antipsychotic. MSE: young woman, well groomed. No psychomotor agitation/slowing noted. Fair eye contact. Tearful, crying initially. Mood depressed, affect full to constricted; at times does become reactive. Thought process linear. Thought content positive depression, hopeless at times. Stated if she were to be discharged would try to kill self. Occasional future oriented thoughts present. No hallucinations noted. Insight adequate, judgment fair. Risk associated w/ depressive sx, suicide attempt, ambivalence about her future, suicidal thoughts at times. Manage w/ education, med titration, mileu therapy, groups, family support. A: 26 y/o woman w/ hx depressive sx, admitted after she tried to choke self w/ a cord. Tolerating lithium titration, may be more sedated w/ it. Plan: No changes at this time encouraged her to try a few doses of zyprexa to target some of her disorganized thinking; may help w/ anxiety and sleep; but recognized that she is concerned about potential AE.
[2016-10-05 20:22] VITALS: BP 123/81
--- NOTE | 2016-10-05 22:41 | NUR ---
PT IS COMPLIANT WITH UNIT RULES, COOPERATIVE WITH STAFF AND PEERS, AND STAYING IN [place]. PT HAD VISIT FROM FATHER. MOOD IS STABLE, AFFECT IS EUTHYMIC TO FULL RANGE, LABILE AT TIMES WITH EPISODES OF CRYING, COMUNICATION IS NORMAL, AND APPETITE IS NORMAL. PT DENIES SI AT THIS TIME.
--- NOTE | 2016-10-06 05:27 | NUR ---
PATIENT SLEPT ALL NIGHT.
[2016-10-06 08:04] VITALS: BP 142/81
--- NOTE | 2016-10-06 09:47 | CP SOUTH PROGRESS NOTE PSYCH ---
Psych (Inpt) Progress Note Progress Note Include the following elements, when applicable: Involvement in the active treatment of the patient with behavioral observations of the patient and the patient's response to the treatment. Review of the ongoing treatment process in the context of the treatment plan. Indication of how multi-disciplinary staff members are carrying out the treatment plan. Plans for future interventions and recommendations for revision of the treatment plan. Liaison with other physicians/providers. Progress Note: Irritated this morning; angry that her breakfast wasnt given correctly /not brought down, difficult and angry w/nursing staff. Refused to take lithium and any other meds stated that she wants to get off my meds and see what Im like, something is making me very angry and I cant tell what. We discussed that we can d/c the olanzapine since she has been refusing already and continues to not want an antipsychotic. Discussed that a full medication trial takes weeks and she should at least see how she does on a therapeutic level of lithium to be checked tmr; prior to d/c-ing it. Discussed that wellbutrin, other antidepressants would be more prone to causing irritability; that lithium, olanzapine and other more potent meds would more likely make her slowed and lethargic; but could continue to monitor. Agreeable with this plan; and to discuss w/ team tmr about any further medication changes after getting lithium level. MSE: young woman, well groomed. Angry affect today, mood irritated and congruent. No psychomotor agitation/slowing noted. Poor eye contact. Thought process goal directed. Thought content positive depression, anger. No evidence of thoughts to hurt herself; though she is hostile at times w/ nursing staff. Not internally preoccupied. Insight adequate, judgment fair. Risk associated w/ depressive sx, suicide attempt, ambivalence about her future, suicidal thoughts at times; and ambivalence about medication. Manage w/ education, med titration, mileu therapy, groups, family support. A: 26 y/o woman w/ hx depressive sx, admitted after she tried to choke self w/ a cord. Clinically no significant change, remains irritable and angry. Plan: d/c olanzapine as she continues to be uncomfortable w/ it. Discussed giving lithium a full trial before stopping it she agreed to see what the level will be tmr.
--- NOTE | 2016-10-06 12:37 | NUR ---
Patient is A&O X 3, appears very anxious, angry and irritable. Patient was requesting information about her medications, attributing her anxiety and frustration as possible side effect of one the her medications. Pt has been Very demanding and challenging to staff, refused to attend to any of the group therapies/ activites, presently isolating in her room on bed rest. refused to answer the assessment for thought of self-harm or to someone else.
--- NOTE | 2016-10-06 14:34 | NUR ---
PT MET WITH DR HORVATH AND AGREED TO TAKE HER MEDS.SHE LATER CAME TO THE MED ROOM AND REQUESTED A PRN ATARAX. WHEN REMINDED THAT SHE TOLD THE DR SHE WOULD TAKE HER MEDS SHE THEN REFUSED THEM. DR HORVATH NOTIIED. PT IS ANGRY AND RESISTIVE TODAY
[2016-10-06 20:10] VITALS: BP 125/76
--- NOTE | 2016-10-06 21:24 | NUR ---
PT WAS VISIBLE ON UNIT BUT MOSTLY STAYED TO HERSELF. SOCIAL AT TIMES BUT NEVER WITH STAFF. REQUESTED PRINT OUT OF MEDS AND SIDE EFEFCTS. ATTENDED WRAP UP BUT WAS VERY PASSIVE. LABILE AND TEARFUL AT TIMES. NO SI REPORTED. PT HAS A LABILE MOOD AND IRRITABLE AFFECT.
--- NOTE | 2016-10-06 23:18 | NUR ---
Patient demanded medication at approximately 1830 after refusing vital signs and medications all day. Patient was informed vitals signs were needed and prior to medication administration. Patient demanded vital signs be taken. Patient was informed vitals will be taken again after report, and patient stormed off stating "I am calling my father and he thinks you guys are doing a awful job". I apologized but reenforced unit rules and need for vital signs for patient safety. Patient was unwilling to listen. Patient requested and Nursing Fire Extinguisher Sprinkler Inspector names to relay to father. Fire Extinguisher Sprinkler Inspector notified. After report and vitals were taken patient refused medication, and avoided explanation. Patient took atarax when this nurse went to break and recinded previous decline of medication a took meds approx 1015ish. Patient needed to be "spaced" from another inpatient because she was laying on his arm in [place]. Reenforced limits and keeping own personal space.
--- NOTE | 2016-10-07 04:19 | NUR ---
NOT COMPLIANT REFUSING EVERTHING VITALS MEDS ARGUMENTATIVE WITH STAFF AT TIMES.
[2016-10-07 08:03] VITALS: BP 120/79
--- NOTE | 2016-10-07 11:42 | SOCIAL WORKER PROG NOTE PSYCH ---
Social Work Progress Note Progress Note Patient presented as irritable and guarded this AM. Patient reports that she feels agitated so is refusing her Zyprexa. Patient is unable to contract for safety today and states that she does not have anywhere to stay besides her moms house. Patients mom is away this week and patient does not feel safe returning to her house alone at this point. Patient is going to call family/friends today to see other options or if someone can stay with her at her moms house. Patient also inquiring about starting on an anti-depressent since she continues to report feeling depressed. Patient is aware that IOP can adjust and alter her medications and it is still to be determined whether or not this will occur during the remainder of her hospitalization. Patient is in agreement with attending IOP at and has intake scheduled for tomorrow at 9:30am.
[2016-10-07 12:16] VITALS: BP 103/76
--- NOTE | 2016-10-07 13:44 | NUR ---
still has look of anger on her face and states she wants to leave. has been cooperative with medications this shift. going to groups. denied thoughts of self harm when asked. mood is stable, constricted affect. interactes with select peers, no interactions with staff.
[2016-10-07 15:37] VITALS: BP 132/88
--- NOTE | 2016-10-07 15:59 | CP SOUTH PROGRESS NOTE PSYCH ---
Psych (Inpt) Progress Note Progress Note Progress Note: I discussed this patient's progress to date, current mental status, treatment process in the context of the treatment plan, and discharge planning with staff/ team in the daily morning inpatient team meeting. I also met with the patient myself in individual session. SUBJECTIVE: "I want to stabilize. I do not think that I am bipolar. I think I have depression and anxiety. The Atarax and gabapentin helps with the anxiety. The other meds make me agitated." OBJECTIVE: Current Medications Sig/Harsh Start time Last Medication Dose Route Stop Time Status Admin Acetaminophen 1,000 MG Q8P PRN 09/30 1600 AC 10/05 PO 1950 Gabapentin 400 MG 0800,1200,1600,09/30 0915 AC 10/07 PO 1234 Hydroxyzine HCl 25 MG Q6-PRN PRN 10/01 1230 AC 10/06 PO 2045 [place] Carbonate 600 MG 10/05 0800 AC 10/07 PO 1001 [place] Carbonate 600 MG 10/01 PO 2144 Sertraline HCl 50 MG 10/07 1415 AC PO Trazodone HCl 50 MG AT BEDTIME NEED.. 09/26 2130 AC 10/04 PO 0025 Vital Signs Date Time Temp Pulse Resp B/P Pulse O2 O2 Flow FiO2 Ox Delivery Rate 10/07 1537 82 132/88 10/07 1216 89 103/76 10/07 0803 96.9 70 120/79 10/06 2009 97.1 93 125/76 ASSESSMENT: Patient complaining of continuing depression, requesting Zoloft today. States that she had taken Zoloft in the past, and that it was helpful. States that the problem with the Zoloft was that at that time she was also doing drugs. Declines Zyprexa. As per nursing report, patient has been difficult on the unit, often argumentative and irritable. Today I met the patient's along with health and social care teacher [place]. We discussed discharge planning. Patient states that she would like to attend [facility]. She will spend the days with her grandmother, and then return home to her mother's house. Her mother is away this week, but states that she has friends who will stay with her to make sure that she is okay. Denies suicidal ideation, homicidal ideation, auditory hallucinations, visual hallucinations, paranoid ideation. Patient states that she feels safe for discharge tomorrow. She reports that she slept well last night, her appetite is good. Speech is well articulated, goal-directed, average in rate, volume and tone. The patient understands the risks/benefits/side effects of the medication and is agreeable to continue taking them. PLAN: Start Zoloft for depression. Anticipate discharge tomorrow, patient will follow-up at [facility]. Continue with current management as patient is improving. Continue to provide support and encouragement.
[2016-10-07 19:44] VITALS: BP 135/84
--- NOTE | 2016-10-08 06:50 | NUR ---
PATIENT SLEPT ALL NIGHT.
[2016-10-08 07:50] VITALS: BP 130/83
[2016-10-08] MEDS ORDERED: HYDROXYZINE HCL25 M2 PO (07:56)
--- NOTE | 2016-10-08 07:59 | NUR ---
ANTICIPATE D/C today to [facility] tomer follow up scheduled at [facility]. Mood is stable, full range of affect. denies thoughts of self harm when asked. Resumed comp[liance with medication yesterday and has verbalized willingness to continue after d/c.Educated on suicide prevention and depression.
[2016-10-08] MEDS ORDERED: GABAPENTIN400 M2 PO (08:47)
--- NOTE | 2016-10-08 08:49 | DISCHARGE SUMMARY REPORT-PSYCH ---
Visit Information Visit Dates/Diagnosis' Admission Date: 09/26/16 Discharge Date: 10/08/16 Reason for Admission: Patient is a 26 year old female who presents to [facility]'s emergency department with suicidal ideation, suicidal planning, and a recent suicidal gesture. Pt. reports two nights ago, she wrapped a computer cord around her neck with intent to commit suicide. Pt. also reports suicidal ideation while driving and recently drove over [address]. Among her most recent stressors, is her recent separation from the father of her children. He now has custody of their 2 daughters, they're living in [place]. The patient is in [place] at this time because her parents and family live in the [facility]. Psy Discharge Primary Diag: Bipolar Disorder, mre depressed. Psy Discharge Secondary Diag: Hx of migraine headaches. Hospital Course Significant Lab Findings: Lab TSH 0.548 uIU/mL 09/26/16 1651 Urine Cannabis Screen > 80.00 NG/ML H 09/26/16 1642 [place] 0.6 mmol/L 10/04/16 0613 Course Complications: None. Consultations: The patient was seen for admission history and physical by Dr. La. Please refer to the H&P for additional information. Allergies: Coded Allergies: Penicillins (Severe, HIVES 09/26/16) benzoyl peroxide (FACIAL SWELLING 09/26/16) Hospital Course/TX Response: The patient was monitored on the unit for depression, suicidal ideation, depression, anxiety and mood stability. She participated in multimodal treatments on the unit. She was medicated with lithium for mood stability, sertraline for depression, gabapentin for anxiety, and hydroxyzine for anxiety. She reports tolerating these medications well. She had a short trial of Zyprexa , which she then declined to continue. A family meeting was held with her mother and father, along with high school social studies tutor Maine Rodriguez. We reviewed the patient's treatment plan, and her medications. Parents offered their support to the patient. Today, the day of discharge, she appears cooperative, but with a sad mood and congruent affect. States that anxiety is relieved with Atarax and Gabapentin, and she is tolerating Zoloft and lithium well, without complaint. Depression continues. She states that she will be able to spend this week visiting her grandmother during the day, and staying at her mother's home during the evening. Her mother will be home on Friday, and during this week, she will have friends visit in the evening for company. Her father is coming to pick her up to bring her to her mother's home this morning. She reports that depression continues. Anxiety has been much relieved, but she is somewhat nervous about leaving the hospital. She agrees to attend IOP. Denies suicidal ideation, homicidal ideation, auditory hallucinations, visual hallucinations, paranoid ideation. Patient states and also believes that she will not kill herself. Speech is well articulated, goal-directed, average in rate, volume and tone. The patient understands the risks/benefits/side effects of the medication and is agreeable to continue taking them. Patient reports tolerating her medications well, without complaint. States she feels safe and ready for discharge. Discharge HBIPS - Tobacco Use Treatment Offered Post DC Medications Offered: NA-No Tob Use >30 days Post DC Tobacco Treatment Plan: NA-No Tobacco use >30days - EtOH/Drug Use D/O Treatment Offered Post DC Medications Offered: NA-No EtOH/Drug Use D/O Post DC EtOH/SubAbuse TX Plan: NA-No EtOH/Drug Use D/O Metabolic Screening - Screen if on a Neuroleptic Medication - Metabolic screening should include: - Blood Pressure, BMI, Glucose or Hgb A1c, & a - Lipid profile from within the past 365 days. Metabolic Screening (x) Not Applicable, patient not on a neuroleptic. OR () Patient on a neuroleptic(s) . Enter below results for Glucose or Hemoglobin A1C, and lipid panel if obtained during the last 365 days. BMI: 18.800 Blood Pressure: 130/83 Laboratory Results (If applicable): Discharge Instructions General Discharge Information Discharge Medications: Discharge Medications- (Dose, route, freq, indication): START taking these NEW Home Medications: Gabapentin Dose: ORAL, Qty: 56 Called in to (Gabapentin) 400 MG 400 Milligram 0800,1200,1600,2000 for Refills: 0 Pharm 1 CAPSULE ANXIETY Last Taken:10/08/16 Time: 8am Sertraline HCl Dose: ORAL, DAILY @8 AM for Qty: 14 Called in to (Sertraline HCl) 50 50 Milligram DEPRESSION AND ANXIETY Refills: 0 Pharm 1 MG TABLET Last Taken:10/08/16 Time: 9am Trazodone HCl Dose: ORAL, AT BEDTIME as Qty: 14 Called in to (Trazodone HCl) 50 50 Milligram needed for INSOMNIA Refills: 0 Pharm 1 MG TABLET Last Taken:10/04/16 Time: 0025 Hydroxyzine HCl Dose: ORAL, EVERY 6 HOURS Qty: 28 Called in to (Hydroxyzine HCl) 25 25 Milligram NEEDED as needed for Refills: 0 Pharm 1 MG TABLET ANXIETY/JITTERY/TREMOR/IN OMNI [place] Carbonate Dose: ORAL, TWICE DAILY for Qty: 56 Called in to ([place] Carbonate) 600 Milligram MOOD STABILITY Refills: 0 Pharm 1 300 MG CAPSULE Last Taken:10/08/16 Time: 8am CONTINUE taking these Home Medications: Eletriptan HBr (Relpax) Dose: ORAL, as needed for 40 MG TABLET 40 MIGRANES STOP taking these DISCONTINUED Home Medications: Aripiprazole (Abilify) 2 MG Dose: ORAL, Every night for MENTAL TABLET 1 Tablet HEALTH Reason Stopped: Changed to different med Vilazodone (Viibryd) 40 MG Dose: ORAL, Every night for MENTAL TABLET 1 Tablet HEALTH Reason Stopped: Changed to different med 1: [facility], [address] [place] [id number] [facility] [address] [place] [id number] Multiple Neuroleptics: (x) Not Applicable OR Document below three failed attempts at monotherapy, or a plan to taper to monotherapy, or augmentation of Clozapine. () Patient's Diet: Regular Patient's Activity: No restrictions DC Disposition: Patient will be living at her mother's home. Recommendations: [place] lab to be drawn this coming at [facility]. Lab slip and instructions for trough level provided. Follow-up at [facility]. Take medications as directed. Referred To: Post Discharge Referrals Provider Referral Service Date: 10/08/16 Referred To: [[facility]] Notes: VÍCTOR Contreras Intake appointment today. 2016. at 9:30am Copies To: Intensive Outpt Psychiatry
[2016-10-08] MEDS ORDERED: TRAZODONE HCL50 M1 PO (08:51)
[2016-10-08] MEDS ORDERED: LITHIUM CARBON300 M4 PO (08:51)
[2016-10-08] MEDS ORDERED: SERTRALINE HCL50 MG PO (08:55)
--- NOTE | 2016-10-08 11:44 | SOCIAL WORKER PROG NOTE PSYCH ---
Social Work Progress Note Progress Note Patient to discharge the hospital today. [facility] has intake at [facility] today at 9 :30am. Patient is interested in attending dual IOP to address both mental health and her marijuana use. Patients father will be picking her up after her IOP intake and she will be returning to her mothers house. Patient spoke with her grandmother and confirmed that she can spend days with her grandmother and evenings with friends until her mother returns. Patient denies SI/HI/AH/VH at present. Patient in agreement with discharge plan and has been recommended to seek AA meetings as well.
--- NOTE | 2016-10-08 18:12 | CP SOUTH PROGRESS NOTE PSYCH ---
Psych (Inpt) Progress Note Progress Note Progress Note: I discussed this patient's progress to date, current mental status, treatment process in the context of the treatment plan, and discharge planning with staff/ team in the daily morning inpatient team meeting. I also met with the patient myself in individual session. OBJECTIVE: Current Medications Sig/Harsh Start time Last Medication Dose Route Stop Time Status Admin Acetaminophen 1,000 MG Q8P PRN 09/30 1600 DCD 10/07 PO 1739 Gabapentin 400 MG 0800,1200,1600,09/30 0915 DCD 10/08 PO 0812 Hydroxyzine HCl 25 MG Q6-PRN PRN 10/01 1230 DCD 10/07 PO 2319 [place] Carbonate 600 MG 10/05 0800 DCD 10/08 PO 0812 [place] Carbonate 600 MG 10/01 DCD 10/07 PO 2005 Sertraline HCl 50 MG 0810/07 1415 DCD 10/08 PO 0856 Trazodone HCl 50 MG AT BEDTIME NEED.. 09/26 2130 DCD 10/04 PO 0025 Vital Signs Date Time Temp Pulse Resp B/P Pulse O2 O2 Flow FiO2 Ox Delivery Rate 10/08 0750 97.3 81 130/83 10/07 1944 97.7 100 135/84 ASSESSMENT: Patient appears cooperative today, but with a sad mood and congruent affect. States that anxiety is relieved with Atarax and Gabapentin, and she is tolerating Zoloft and lithium well, without complaint. Depression continues. She states that she will be able to spend this week visiting her grandmother during the day, and staying at her mother's home during the day. Her mother will be home on Friday, and during this week, she will have friends visit in the evening for company. Her father is coming to pick her up to bring her to her mother's home this morning. She reports that depression continues. Anxiety has been much relieved, but she is somewhat nervous about leaving the hospital. She agrees to attend [facility]. Denies suicidal ideation, homicidal ideation, auditory hallucinations, visual hallucinations, paranoid ideation. Patient states and also believes that she will not kill herself. Speech is well articulated, goal-directed, average in rate, volume and tone. The patient understands the risks/benefits/side effects of the medication and is agreeable to continue taking them. PLAN: Discharge today. She will follow up at [facility]. Continue with current management as patient is improving. Continue to provide support and encouragement.
== END 2016-10-08 09:30 | DRG 753 ==
LOC: ENRESERVDT → ENRESERVTM → ERH 15:45 → CP SOUTH 19:31 → ERHI 19:31 → CP SOUTH 21:32
PROVIDERS: Physician Assistant Medical; Psychiatry & Neurology Psychiatry; ADMIT Psychiatry & Neurology Psychiatry
DX: F31.30 Bipolar disorder, current episode depressed, mild or moderate severity, unspecified (principal)
CPT/HCPCS: 36415; 80307; 81001; 81025; 87086; 90832; 93005; 93010; G0480